=== PATIENT | male | born 1980 | race Caucasian/White ===

== ENCOUNTER 2019-12-23 09:38 | Outpatient (CLI) | payer BC ==
--- NOTE | 2019-12-23 10:39 | RAD ---
Cervical spine 4 views: 12/23/2019 COMPARISON: None HISTORY: Prior neck surgery, cervical radiculopathy FINDINGS: Open-mouth odontoid view demonstrates a normal-appearing dens and C1-2 articulation. Anterior discectomy and fusion hardware noted at C5-6/C6-7. Minimal anterolisthesis at C3-4 and C4-5 noted. At C4-5 there is disc space narrowing with mild degenerative endplate change and anterior osteophyte formation. No evidence for hardware failure. The cervicothoracic junction appears normal on the provided swimmer's lateral view. IMPRESSION: Postoperative and degenerative changes of the cervical spine as detailed above.
== END 2019-12-23 09:39 | disposition home or self-care (01) ==
LOC: TBSIIMAG 09:38
PROVIDERS: ATTEND Neurological Surgery
DX: M47.22 Other spondylosis with radiculopathy, cervical region (principal); Z98.1 Arthrodesis status
CPT/HCPCS: 72040

== ENCOUNTER 2020-02-11 08:54 | Outpatient (CLI) | payer BC ==
--- NOTE | 2020-02-11 09:24 | RAD ---
XR Cerv Sp Ap Lat STANDARD History: Cervical radiculopathy Comparison: Radiograph 12/23/2019 Findings: Similar C5-C7 ACDF hardware discectomy cage. No migration of hardware nor periarticular latha ency. Mild C3/C4 and moderate C4/C5 disc space narrowing. No facet joint widening. Prevertebral soft tissues are normal. Lung apices are clear. Impression: Similar appearance of the surgical hardware without complication.
== END 2020-02-11 08:55 | disposition home or self-care (01) ==
LOC: TBSIIMAG 08:54
PROVIDERS: ATTEND Neurological Surgery
DX: M54.12 Radiculopathy, cervical region (principal); Z98.890 Other specified postprocedural states
CPT/HCPCS: 72040